=== PATIENT | female | born 1930 | race Caucasian/White ===

== ENCOUNTER 2016-12-21 08:46 | Day surgery (SDC) | payer MEDICARE, OTHER ==
[~2016-12-21 08:46] MED LIST: BRIMONIDINE 0.2% OPHTH DROPS 5 ML ONE; CYCLOPENTOLATE 1% OPHTH DROPS 2 ML ONE; KETOROLAC 0.45% OPHTH DROPS ONE; PHENYLEPHRINE 2.5% OPHTH 2 ML DROPS ONE; PROPARACAINE 0.5% OPHTH DROPS 15 ML ONE; TIMOLOL 0.5% OPHTH DROPS ONE
[2016-12-21] MEDS ORDERED: PROPARACAINE 0.5% OPHTH DROPS 15 ML OPTH ONE ×2 (09:08→09:49)
[2016-12-21] MEDS ORDERED: CYCLOPENTOLATE 1% OPHTH DROPS 2 ML OPTH ONE (09:08)
[2016-12-21] MEDS ORDERED: PHENYLEPHRINE 2.5% OPHTH 2 ML DROPS OPTH ONE (09:08)
[2016-12-21] MEDS ORDERED: KETOROLAC 0.45% OPHTH DROPS OPTH ONE (09:08)
[2016-12-21] MEDS ORDERED: LACTATED RINGERS 500 ML IV ONE (09:25)
[2016-12-21] MEDS ORDERED: CHONDR SULF/HYALURONATE SYRINGE IO ONE (09:49)
[2016-12-21] MEDS ORDERED: EPINEPHrine 1 MG/ML AMP IVP ONE (09:49)
[2016-12-21] MEDS ORDERED: BRIMONIDINE 0.2% OPHTH DROPS 5 ML OPTH ONE (09:49)
[2016-12-21] MEDS ORDERED: TIMOLOL 0.5% OPHTH DROPS OPTH ONE (09:50)
[2016-12-21] MEDS ORDERED: TRIAMCIN/MOXIFLOX/VANCO 1 ML VIAL IO ONE ×2 (09:50)
[2016-12-21] MEDS ORDERED: BSS/LIDOCAINE/EPINEPHRINE 1 ML SYRINGE IO ONE ×2 (09:50)
[2016-12-21] MEDS ORDERED: MIDAZOLAM 2 MG/2 ML VIAL IVP ONE (10:10)
[2016-12-21 10:53] VITALS: BP 148/71
--- NOTE | 2016-12-21 11:29 | OPERATIVE REPORT ---
DATE OF SURGERY: 12/21/2016 00:00:00 PREOPERATIVE DIAGNOSIS: Visually significant cataract, left eye. Cataract surgery was performed on th e right eye on 03/04/2015. POSTOPERATIVE DIAGNOSIS: Visually significant cataract, left eye. Cataract surgery was performed on t he right eye on 03/04/2015. PROCEDURE: Phacoemulsification posterior chamber intraocular lens implant, left eye. SURGEON: Tirso Dominguez MD. ANESTHESIA: Monitored anesthesia care. COMPLICATIONS: None. 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 Best corrected visual acuity was 20/25 with glare to 20/40 in the left eye. Indications for surgery were difficulty reading, difficul ty seeing words and close captions on TV, difficulty seeing street signs, difficulty driving in low l ight or at night, difficulty driving at night because of headlights from other vehicles, and difficul ty with glare or bright light in any situation. She was consented at length concerning the risks and benefits of cataract surgery, after which she expressed a desire to proceed with surgery. OPERATIVE PROCEDURE: The patient was taken into OR #2 and placed under monitored anesthesia care. A s urgical time-out was conducted confirming the correct patient, correct procedure and correct surgical site. She was placed under the LenSx laser and her eye docked to the laser interface. The laser perf ormed the capsulotomy, lens softening, phaco wounds, and arcuate keratotomy incisions. She was then m magdalena to the operating microscope, given topical anesthesia, and then prepped and draped in the usual sterile fashion. The eye was entered at the 6- and 3 o'clock positions. Intracameral Shugarcaine was injected into the anterior chamber, followed by Viscoat. Capsulorrhexis flap created by the LenSx las er was removed from the anterior chamber and the nucleus was hydrodissected and phacoemulsified. The cortex was evacuated using automated infusion aspiration. Provisc was injected in the capsular bag an d a 22.5 diopter intraocular lens was inserted into the bag. Approximately 0.8 mL of a mixture of tri amcinolone, moxifloxacin, and vancomycin was injected subconjunctivally in the superior quadrant for infection and inflammation prophylaxis. I/A was used to evacuate the viscoelastic materials. The eye was inflated to physiologic pressure using balanced salt solution and found to be watertight. The pat ient was taken from the operating room in good condition and given postoperative instructions. JOB #: [id number] EXT JOB #:[id number]
== END 2016-12-21 08:47 | disposition home or self-care (01) ==
LOC: SDS 08:46
PROVIDERS: ATTEND Ophthalmology
PROC: 08RK3JZ Replacement of Left Lens with Synthetic Substitute, Percutaneous Approach (ICD-10-PCS; principal; 2016-12-21 10:00)
DX: H25.12 Age-related nuclear cataract, left eye (principal); H25.012 Cortical age-related cataract, left eye; Z79.82 Long term (current) use of aspirin
CPT/HCPCS: 66984; A9270; J3490; V2632

== ENCOUNTER 2016-12-23 16:37 | Outpatient (CLI) | payer MEDICARE, OTHER | END 2016-12-23 16:38 | disposition critical access hospital (66) | LOC: EMS 16:37 | PROVIDERS: ATTEND Surgery | DX: R03.0 Elevated blood-pressure reading, without diagnosis of hypertension (principal) | CPT/HCPCS: A0425; A0429 ==

== ENCOUNTER 2016-12-23 17:14 | Emergency (ER) | payer MEDICARE, OTHER ==
--- NOTE | 2016-12-23 17:36 | ED Physician Documentation ---
History of Present Illness - Stated complaint Stated Complaint: ANXIOUS - Chief complaint Chief Complaint: General - History obtained from History obtained from: Patient - History of Present Illness Timing: Chronic Pain level max: 0 Pain level now: 0 Improved by: nothing Worsened by: stress - Additonal information Additional information: Patient with asymptomatic high blood pressure for the past few days. Takes losartan at home. Did not take her anti-anxiety meds at home. Review of Systems Ten Systems: 10 systems reviewed and negative Constitutional: denies: Fever, Chills Ears: denies: Ear pain Nose: denies: Rhinorrhea / runny nose, Congestion Throat: denies: Sore throat Cardiac: denies: Chest pain / pressure Respiratory: denies: Cough GI: denies: Abdominal Pain, Nausea, Vomiting, Diarrhea Skin: denies: Rash Musculoskeletal: denies: Neck pain, Back pain Neurologic: denies: Focal weakness, Numbness, Syncope, Seizure, Confused, Altered mental status, Headache PD PAST MEDICAL HISTORY - Past Medical History Past Medical History: Yes Cardiovascular: Hypertension, High cholesterol Respiratory: None Endocrine/Autoimmune: None GI: None : None HEENT: None Psych: Anxiety Musculoskeletal: Osteoarthritis Derm: None - Past Surgical History Past Surgical History: Yes Ortho: Hip replacement, Knee replacement /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 Cardiovascular: Coronary stent HEENT: Cataracts - Present Medications Home Medications: Ambulatory Orders Medication Instructions Recorded Confirmed Aspirin 81 mg PO DAILY 03/03/15 12/23/16 Atorvastatin Calcium [Lipitor] 40 mg PO DAILY 03/03/15 12/23/16 Gabapentin 100 mg PO BID 03/03/15 12/23/16 Indomethacin [Indocin] 25 mg PO BID 03/03/15 12/23/16 Losartan [Cozaar] 50 mg PO DAILY 03/03/15 12/23/16 Zolpidem [Ambien] 5 mg PO DAILY 03/03/15 12/23/16 - Allergies Allergies/Adverse Reactions: Allergies Allergy/AdvReac Type Severity Reaction Status Date / Time bupropion Allergy Rash Verified 12/23/16 17:23 - Social History Does the pt smoke?: No Smoking Status: Never smoker Does the pt have substance abuse?: No PD ED PE NORMAL - Vitals Vital signs reviewed: Yes - General General: Alert and oriented X 3, No acute distress - HEENT HEENT: Atraumatic, PERRL, EOMI, Moist mucous membranes - Neck Neck: Supple, no meningeal sign - Cardiac Cardiac: RRR, Strong equal pulses - Respiratory Respiratory: No respiratory distress, Clear bilaterally - Abdomen Abdomen: Soft, Non tender, Non distended - Back Back: No spinal TTP - Derm Derm: Warm and dry, No rash - Extremities Extremities: No edema, No calf tenderness / cord - Neuro Neuro: Alert and oriented X 3, chemistry specialist 2-12 intact, No motor deficit, No sensory deficit, Normal speech - Psych Psych: Normal mood, Normal affect Results - Vitals Vitals: Vital Signs - 24 hr 12/23/16 12/23/16 17:14 17:53 Temperature 36.5 C Heart Rate 78 76 Respiratory 18 18 Rate Blood Pressure 193/83 H 157/79 H O2 Saturation 96 96 Oxygen O2 Source Room air PD MEDICAL DECISION MAKING - ED course Complexity details: considered differential, d/w patient ED course: Patient is an 86-year-old female with asymptomatic hypertension. No chest pain , no shortness of breath, no headache, no visual changes. She is very well- appearing, nontoxic. Blood pressure decreased on its own as we talked. We will continue her medications as prescribed at home and have her follow-up with her doctor for adjustment. Patient counseled regarding signs and symptoms for which I believe and urgent re-evaluation would be necessary. Patient with good understanding of and agreement to plan and is comfortable going home at this time This document was made in part using voice recognition software. While efforts are made to proofread this document, sound alike and grammatical errors may occur. Departure - Departure Disposition: 01 Home, Self Care Clinical Impression: Hypertension Qualifiers: Hypertension type: essential hypertension Qualified Code(s): I10 - Essential ( primary) hypertension Condition: Good Instructions: ED Hypertension Conf Out Of Control, ED HTN Established Follow-Up: So Gandhi PA [Primary Care Provider] - Within 1 week Comments: Make sure to follow-up with your doctor regarding your blood pressure. Keep a log of your blood pressure at home and take it with you to your appointment. Return to the emergency department if you develop symptoms such as chest pain, shortness of breath, headache, visual changes or any other concerning symptoms. Discharge Date/Time: 12/23/16 17:54
[2016-12-23 17:53] VITALS: BP 157/79
== END 2016-12-23 17:54 | disposition home or self-care (01) ==
LOC: EDUNIT# → ED 17:14
DX: I10 Essential (primary) hypertension (principal); F41.9 Anxiety disorder, unspecified; E78.00 Pure hypercholesterolemia, unspecified; M19.90 Unspecified osteoarthritis, unspecified site
CPT/HCPCS: 99283

== ENCOUNTER 2017-05-02 11:14 | Outpatient (CLI) | payer MEDICARE, OTHER ==
--- NOTE | 2017-05-04 08:54 | Mammography Report ---
DATE OF SERVICE: 05/02/2017 DIGITAL BILATERAL SCREENING MAMMOGRAM: 05/02/2017 COMPARISON: Mammogram 08/24/2015. INDICATION: Screening mammography. TECHNIQUE: Bilateral CC and MLO breast views. FINDINGS: There are scattered fibroglandular densities. No dominant mass, architectural distortion, or concerning cluster of microcalcifications is seen. IMPRESSION: BIRADS category: 1, negative. RECOMMENDATIONS: Annual screening mammogram. STANDARD QUALIFYING STATEMENTS 1. This examination was reviewed with the aid of Computed-Aided Detection (CAD) . 2. A negative or benign imaging report should not delay biopsy if clinically suspicious findings are present. Consider surgical consultation if warranted. More than 5% of cancers are not identified by imaging. 3. Dense breasts may obscure an underlying neoplasm. TD: 05/03/2017 18:42 JORGE A
== END 2017-05-02 11:15 | disposition home or self-care (01) ==
LOC: DI.S 11:14
PROVIDERS: ATTEND Physician Assistant
DX: Z12.31 Encounter for screening mammogram for malignant neoplasm of breast (principal)
CPT/HCPCS: 77067

== ENCOUNTER 2017-07-31 13:51 | Outpatient (CLI) | payer MEDICARE, OTHER | END 2017-07-31 13:52 | disposition home or self-care (01) | LOC: RT.S 13:51 | PROVIDERS: ATTEND Physician Assistant | DX: R07.9 Chest pain, unspecified (principal) | CPT/HCPCS: 93005 ==

== ENCOUNTER 2019-01-01 10:12 | Outpatient (CLI) | payer MEDICARE, OTHER | END 2019-01-01 10:13 | disposition home or self-care (01) | LOC: DI 10:12 | PROVIDERS: ATTEND Physician Assistant | DX: I35.8 Other nonrheumatic aortic valve disorders (principal) | CPT/HCPCS: 93306 ==